=== PATIENT | female | born 1990 | race African-American/Black ===

== ENCOUNTER 2018-01-22 20:53 | Emergency (ER) | payer SELFPAY, OTHER | END 2018-01-22 22:05 | disposition left against medical advice (07) | LOC: ER 20:53 | DX: S00.06XA Insect bite (nonvenomous) of scalp, initial encounter (principal); Z53.21 Procedure and treatment not carried out due to patient leaving prior to being seen by health care provider; W57.XXXA Bitten or stung by nonvenomous insect and other nonvenomous arthropods, initial encounter; Y93.89 Activity, other specified; Y99.8 Other external cause status; Y92.89 Other specified places as the place of occurrence of the external cause ==

== ENCOUNTER 2018-04-25 22:37 | Emergency (ER) | payer BC ==
[~2018-04-25] VITALS: Ht 167.6 cm; Wt 59.0 kg
[~2018-04-25 22:37] MED LIST: VENTOLIN HFA18 GM INH
--- NOTE | 2018-04-25 22:55 | PHYS DOC ---
Past Medical History Past Medical History: Depression Past Surgical History: Tubal ligation Alcohol Use: None Drug Use: Marijuana Adult General Chief Complaint Chief Complaint: CHEST PAIN HPI HPI Patient is a 27 year old female who presents with chest pain. A shunt awoke with pain this morning from sleep at 11 AM. She describes the pain to be over the lateral left rib cage and sometimes over the anterior portion of the left chest in the pectoralis area. She has never had pain like this in the past. She has no prior history of coronary artery disease. Pain is worse with movement and with deep inspiration. She did not have any trauma or recent strenuous activity other than baseline. No fever or chills. No cough. No palpitations or lightheadedness. Review of Systems Review of Systems Constitutional: Denies fever or chills Eyes: Denies change in visual acuity HENT: Denies nasal congestion Respiratory: Denies cough or shortness of breath Cardiovascular: No additional information not addressed in HPI GI: Denies abdominal pain, nausea Musculoskeletal: Denies back pain Integument: Denies rash or skin lesions Neurologic: Denies headache All other systems were reviewed and found to be within normal limits, except as documented in this note. Current Medications Current Medications Current Medications Medications (Trade) Dose Ordered Sig/Nelson Start Time Stop Time Status Last Admin Dose Admin Diphenhydramine HCl (Benadryl) 25 mg 1X ONCE 04/26/18 00:30 04/26/18 00:42 DC 04/26/18 00:20 25 MG Ketorolac Tromethamine (Toradol 30mg Vial) 30 mg 1X ONCE 04/26/18 00:00 04/26/18 00:24 DC Morphine Sulfate (Morphine Sulfate) 6 mg 1X ONCE 04/25/18 23:00 04/25/18 23:02 DC 04/25/18 23:20 6 MG Allergies Allergies Allergies Coded Allergies Type Severity Reaction Last Updated Verified No Known Drug Allergies 08/04/14 No Physical Exam Physical Exam Constitutional: Well developed, well nourished, no acute distress HENT: Normocephalic, atraumatic, bilateral external ears normal, oropharynx moist Eyes: PERRLA, EOMI Neck: Normal range of motion Cardiovascular:Heart rate regular rhythm, no murmur Lungs & Thorax: Bilateral breath sounds clear to auscultation, + TTP over left pectoralis muscle and point tenderness over lateral left rib cage Skin: Warm, no rash Extremities: No edema Neurologic: Alert and oriented X 3 Psychologic: Affect normal Current Patient Data Vital Signs Vital Signs Date Time Temp Pulse Resp B/P (MAP) Pulse Ox O2 Delivery O2 Flow Rate FiO2 04/26/18 00:22 59 16 116/69 (85) 99 Room Air 04/25/18 22:37 97.8 97.8 Lab Values Laboratory Tests Test 04/25/18 23:10 White Blood Count 6.3 x10^3/uL (4.0-11.0) Red Blood Count 4.04 x10^6/uL (3.50-5.40) Hemoglobin 12.7 g/dL (12.0-15.5) Hematocrit 36.3 % (36.0-47.0) Mean Corpuscular Volume 90 fL (79-100) Mean Corpuscular Hemoglobin 31 pg (25-35) Mean Corpuscular Hemoglobin Concent 35 g/dL (31-37) Red Cell Distribution Width 13.1 % (11.5-14.5) Platelet Count 217 x10^3/uL (140-400) Neutrophils (%) (Auto) 57 % (31-73) Lymphocytes (%) (Auto) 29 % (24-48) Monocytes (%) (Auto) 8 % (0-9) Eosinophils (%) (Auto) 5 % (0-3) H Basophils (%) (Auto) 1 % (0-3) Neutrophils # (Auto) 3.6 x10^3uL (1.8-7.7) Lymphocytes # (Auto) 1.8 x10^3/uL (1.0-4.8) Monocytes # (Auto) 0.5 x10^3/uL (0.0-1.1) Eosinophils # (Auto) 0.3 x10^3/uL (0.0-0.7) Basophils # (Auto) 0.1 x10^3/uL (0.0-0.2) D-Dimer (Noy) < 0.27 ug/mlFEU Sodium Level 140 mmol/L (136-145) Potassium Level 4.0 mmol/L (3.5-5.1) Chloride Level 105 mmol/L (98-107) Carbon Dioxide Level 28 mmol/L (21-32) Anion Gap 7 (6-14) Blood Urea Nitrogen 13 mg/dL (7-20) Creatinine 1.0 mg/dL (0.6-1.0) Estimated GFR (Cockcroft-Gault) 79.9 Glucose Level 78 mg/dL (70-99) Calcium Level 9.2 mg/dL (8.5-10.1) Troponin I Quantitative < 0.017 ng/mL (0.000-0.055) Laboratory Tests 04/25/18 23:10 Laboratory Tests 04/25/18 23:10 EKG EKG No STEMI Interpretation Time: 22:47 Radiology/Procedures Radiology/Procedures 22:50: Patient is seen and examined. PE as documented above. EKG is normal. Will check dimer, trop, PCXR. Morphine for pain. Patient was evaluated for chest pain that seemed musculoskeletal in nature. Her EKG was normal. Her dimer was not elevated. Her troponin was also not elevated. She was given morphine in the ER which did relieve her pain symptoms. She was discharged home with ibuprofen and [place]. Patient was advised to follow-up with her primary care doctor or return to the ER for any new or worsening symptoms. Opiate precautions were also discussed and all of her questions were answered prior to discharge home. Her mother is present to drive her home this evening. Course & Med Decision Making Course & Med Decision Making Pertinent Labs and Imaging studies reviewed. (See chart for details) [] Dragon Disclaimer Dragon Disclaimer This electronic medical record was generated, in whole or in part, using a voice recognition dictation system. Departure Departure Referrals: NO PCP (PCP) Scripts Hydrocodone/Apap 5-325 (NORCO 5-325 TABLET) 1 Each Tablet 1-2 EACH PO PRN Q6HRS PRN for severe pain, #15 as needed for pain Prov: REGGIE ZAVALA DO 04/26/18 Ibuprofen (IBUPROFEN) 800 Mg Tablet 800 MG PO PRN TID PRN for PAIN, #20 TAB take with food or milk to avoid upsetting stomach Prov: REGGIE ZAVALA DO 04/26/18 REGGIE ZAVALA DO Apr 25, 2018 22:55
[2018-04-25] MEDS ORDERED: MORPHINE SULFATE 10 MG/ML VIAL. IV ONE (23:00)
[2018-04-25 23:24] LABS: BASO # 0.1 x10^3/uL (0.0-0.2); BASO % 1 % (0-3); EOS # 0.3 x10^3/uL (0.0-0.7); EOS % 5 % (0-3); HEMATOCRIT 36.3 % (36.0-47.0); HEMOGLOBIN 12.7 g/dL (12.0-15.5); LYMPH # 1.8 x10^3/uL (1.0-4.8); LYMPH % 29 % (24-48); MEAN CORPUSCULAR HEMOGLOBIN 31 pg (25-35); MEAN CORPUSCULAR HGB CONC 35 g/dL (31-37); MEAN CORPUSCULAR VOLUME 90 fL (79-100); MONO # 0.5 x10^3/uL (0.0-1.1); MONO % 8 % (0-9); NEUT # 3.6 x10^3uL (1.8-7.7); NEUT % 57 % (31-73); PLATELET COUNT 217 x10^3/uL (140-400); RED BLOOD COUNT 4.04 x10^6/uL (3.50-5.40); RED CELL DISTRIBUTION WIDTH 13.1 % (11.5-14.5); WHITE BLOOD COUNT 6.3 x10^3/uL (4.0-11.0)
[2018-04-25 23:36] LABS: CALCIUM 9.2 mg/dL (8.5-10.1); GFR 79.9
[2018-04-26] MEDS ORDERED: KETOROLAC 30 MG/ML VIAL. IV ONE
[2018-04-26 00:22] VITALS: BP 116/69
[2018-04-26] MEDS ORDERED: HYDR-971 PO (00:23)
[2018-04-26] MEDS ORDERED: IBUP-1060 PO (00:23)
[2018-04-26] MEDS ORDERED: diphenhydrAMINE HCL 25 MG CAPSULE PO ONE (00:30)
--- NOTE | 2018-04-26 06:48 | EKG ---
[facility] [address] [place] [address] Test Date: 2018-04-25 Test Time: 22:44:09 Pat Name: CANDELARIA CABALLERO Department: Room: Gender: F Charge Entry Clerk: : 1990 Requested By: REGGIE ZAVALA Order Number: [id number] Reading MD: Liam Funk MD Measurements Intervals [place] Rate: 69 P: 0 MT: 132 QRS: 69 QRSD: 86 T: 41 QT: 386 QTc: 419 Interpretive Statements SINUS RHYTHM Electronically Signed On 04-26-2018 12:30:24 CDT by Liam Funk MD
--- NOTE | 2018-04-26 07:50 | RAD ---
Portable chest, 04/25/2018: HISTORY: Chest pain Comparison is made to a study from 08/04/2014. The heart size and pulmonary vascularity are normal. The lungs are clear. There is no evidence of pleural fluid. IMPRESSION: No acute cardiopulmonary abnormality is detected. Electronically signed by: Primo Ames MD (04/26/2018 7:46 AM) [facility]
== END 2018-04-26 00:30 | disposition home or self-care (01) ==
LOC: ER 22:37
DX: R07.89 Other chest pain (principal); F32.9 Major depressive disorder, single episode, unspecified; Z98.51 Tubal ligation status
CPT/HCPCS: 36415; 71045; 80048; 84484; 85025; 85379; 93005; 96374; 99285; J2270; Q0163